=== PATIENT | female | born 1965 | race African-American/Black ===

== ENCOUNTER 2016-12-01 15:15 | Emergency (ER) | payer OTHER, SELFPAY | END 2016-12-01 15:58 | disposition home or self-care (01) | LOC: MADERS 15:15 | DX: M54.41 Lumbago with sciatica, right side (principal); G44.209 Tension-type headache, unspecified, not intractable; I10 Essential (primary) hypertension; F17.210 Nicotine dependence, cigarettes, uncomplicated | CPT/HCPCS: 99283 ==

== ENCOUNTER 2017-05-29 11:18 | Emergency (ER) | payer SELFPAY ==
[2017-05-29 14:21] LABS: Bilirubin Negative (Negative); Blood, Urine Small (Negative); Glucose, Urine (Dipstick) Negative (Negative); Leukocyte Negative (Negative); Nitrite Negative (Negative); Protein, Urine (Dipstick) Negative (Neg-Trace); Specific Gravity, Urine 1.015 (1.005-1.030); Urobilinogen 0.2 mg/dL (0.2-1.0); pH, Urine 5.5 (5.0-9.0)
[2017-05-29 14:22] LABS: Clarity Hazy (Clear)
[2017-05-29 14:33] LABS: Bacteria/HPF Rare-Few HPF (None Seen); RBC/HPF 0-3 HPF (0-3); Squamous Epithelial 0-3 HPF (0-3); WBC/HPF 0-3 HPF (0-3)
[2017-05-29 14:34] LABS: Trichomonas/HPF Rare HPF (None Seen)
[2017-05-29] MEDS ORDERED: Diazepam 5 MG TAB ONE (14:37)
[2017-05-29] MEDS ORDERED: Dexamethasone 10 MG/ML VIAL ONE ×2 (14:38→14:40)
[2017-05-29] MEDS ORDERED: MORPHINE 10 MG/ML SYRINGE ONE (14:38)
[2017-05-29] MEDS ORDERED: Ketorolac Tromethamine 30 MG/ML VIAL ONE (14:38)
[2017-05-29] MEDS ORDERED: Ondansetron HCl/PF 4 MG/2 ML Vial ONE (14:38)
--- NOTE | 2017-05-29 14:39 | RAD ---
THREE VIEWS LUMBAR SPINE: HISTORY: Pain after lifting. COMPARISON: None. FINDINGS: There appears to be sclerosis along the superior endplate of T12. Dedicated thoracic spine imaging i s recommended. There are five lumbar type vertebral bodies. Lumbar spine vertebral body height is m aintained. No fracture. Minimal osteophyte formation. IMPRESSION: Possible mild compression deformity at T12. Correlate clinically. Consider thoracic spine imaging. POS: [facility]
--- NOTE | 2017-05-29 17:26 | CT ---
LUMBAR SPINE CT WITHOUT CONTRAST: 05/29/17 HISTORY: Severe pain times three days. Abnormal lumbar spine radiograph series. COMPARISON: None. TECHNIQUE: Noncontrast lumbar spine CT is performed in the axial plane. Sagittal and coronal reformatted images are submitted for interpretation. FINDINGS: Dependent atelectatic changes in the lung bases. Visualized solid organs are grossly unremarkable. Ev aluation is limited by the lack of IV contrast. The visualized mesentery demonstrates nonspecific gastrohepatic lymph nodes. 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 There does appear to be recanalization of the umbilical vein. Correlate for portal hypertension. Visualized kidneys do not demonstrate any obstructive uropathy. The visualized alimentary canal is un remarkable. CT evidence of cholelithiasis without evidence of cholecystitis. Lumbar spine vertebral body height is maintained. There is no fracture. There is no malalignment. Tra nsverse processes are intact. Spinous processes are intact. Limited evaluation of contents of the central spinal canal and neural foramina due to technique. T10-T11: No significant central canal stenosis or foraminal narrowing. T11-T12: No significant central canal stenosis or foraminal narrowing. T12-L1: No significant central canal stenosis or foraminal narrowing. L1-L2: No significant central canal stenosis. Neural foramina are patent. L2-L3: No significant central canal stenosis. Neural foramina are patent. L3-L4: Generalized disc bulge, ligamentum flavum thickening results in mild central canal stenosis. R ight neural foramen is patent. Minimal left foraminal narrowing. L4-L5: Generalized disc bulge, ligamentum flavum thickening and facet hypertrophy results in severe c entral canal stenosis. Mild bilateral foraminal narrowing. L5-S1: No significant posterior disc abnormality. No significant stenosis of the thecal sac. Disc mat erial encroaches upon both subarticular zone and partially obscures bilateral traversing S1 nerve wong ts (left greater than right). Neural foramina are patent bilaterally. IMPRESSION: 1. Degenerative changes of the lumbar spine as above. There is severe central canal stenosis at L4-L5. 2. Disc material abuts and partially obscures bilateral traversing S1 nerve roots. POS: [facility]
[2017-05-29] MEDS ORDERED: Azithromycin 250 MG TAB ONE (17:49)
== END 2017-05-29 17:56 | disposition home or self-care (01) ==
LOC: MADERS 11:18
DX: A59.01 Trichomonal vulvovaginitis (principal); M62.830 Muscle spasm of back; E11.9 Type 2 diabetes mellitus without complications; I10 Essential (primary) hypertension; F17.210 Nicotine dependence, cigarettes, uncomplicated; X50.0XXA Overexertion from strenuous movement or load, initial encounter; Y99.0 Civilian activity done for income or pay
CPT/HCPCS: 72100; 72131; 81001; 96374; 96375; J1100; J1885; J2270; J2405

== ENCOUNTER 2017-09-08 08:20 | Emergency (ER) | payer SELFPAY ==
[2017-09-08] MEDS ORDERED: Ketorolac Tromethamine 60 MG/2 ML VIAL ONE (08:49)
== END 2017-09-08 09:15 | disposition home or self-care (01) ==
LOC: MADERS 08:20
DX: M54.5 Low back pain (principal); Z79.84 Long term (current) use of oral hypoglycemic drugs; Z79.899 Other long term (current) drug therapy; W18.2XXA Fall in (into) shower or empty bathtub, initial encounter
CPT/HCPCS: 96372; J1885

== ENCOUNTER 2018-03-30 11:05 | Emergency (ER) | payer SELFPAY ==
--- NOTE | 2018-04-02 08:15 | PQF ---
[facility] POST DISCHARGE CLINICAL DOCUMENTATION IMPROVEMENT CLARIFICATION FORM l Todays Date 04/02/2018 l Patients Name Arlet Burnette MR [id number] l Acct #N [id number] l Admit Date 03/30/2018 l Disch Date 03/30/2018 Syrup Mixer Helper Name Cesario Candelariofabio Email: [email or web address]: To be completed by Syrup Mixer Helper: Present Clinical Indicators - Signs / Symptoms Results and Location in Medical Record [ ] Documentation of: unspecified Bronchitis [ ] [ ] [ ] [ ] [ ] [ ] [ ] [ ] Risks [ ] [ ] [ ] Treatment [ ] Bronchitis Query for Specificity of Acute or Chronic of Bronchitis. [ ] [ ] To be completed by Physician: DR. Kenyatta MD, Rudolph The documentation in this patients record requires clarification to ensure coding compliance and accuracy. Check the appropriate box and include in your discharge summary. [ ] [ ] [ ] [ ] Please check this box if this does not apply to this patient [ ] Unable to determine [ ] Other diagnosis: Review the following information and exercise your independent professional judgment in responding to the clarification. Based upon the clinical findings, risk factors, and treatment, please clarify if you are treating one of the above probable or suspected diagnoses. Physician Signature: Date Time MTDD
== END 2018-03-30 11:30 | disposition home or self-care (01) ==
LOC: MADERS 11:05
DX: J40 Bronchitis, not specified as acute or chronic (principal); E11.9 Type 2 diabetes mellitus without complications; I10 Essential (primary) hypertension; F17.210 Nicotine dependence, cigarettes, uncomplicated; Z79.84 Long term (current) use of oral hypoglycemic drugs
CPT/HCPCS: 99281